=== PATIENT | female | born 1955 | race Caucasian/White ===

== ENCOUNTER 2017-09-19 07:58 | Day surgery (SDC) | payer OTHER ==
[2017-09-19] MEDS ORDERED: PROPOFOL 40 ML (09:57)
== END 2017-09-19 10:55 | disposition home or self-care (01) ==
LOC: GIL 07:58
DX: Z12.11 Encounter for screening for malignant neoplasm of colon (principal); K64.8 Other hemorrhoids; Z86.010 Personal history of colon polyps
CPT/HCPCS: 45378